=== PATIENT | male | born 1990 | race Caucasian/White ===

== ENCOUNTER 2018-04-25 23:49 | Emergency (ER) | payer OTHER ==
[2018-04-26] MEDS ORDERED: ACETAMINOPHEN 500 MG TAB PO ONE (00:35)
[2018-04-26] MEDS ORDERED: NS 1,000 ML IV ONE (00:43)
--- NOTE | 2018-04-26 00:52 | EDPHY ---
H & P Stated Complaint: RIGHT LEG CALF SWOLLEN, WORRIED ABOUT DVT Time Seen by Provider: 04/26/18 00:07 HPI/ROS: HPI The patient presents with atraumatic right calf swelling which began tonight at about 11:00 p.m.. His calf felt sore and then began to feel tight and swollen. He then had radiation of his symptoms toward his groin. He denies any injuries to the area, any recent workout, any fevers or chills. The leg does not feel warm. He took an airplane flight about 2 weeks ago that was 2 hr long. His sister and other family members have a history of DVT/PE. He has never had a DVT or PE. He denies any shortness of breath, palpitations, chest pain. REVIEW OF SYSTEMS 10 systems were reviewed and negative with the exception of the elements mentioned in the history of present illness. PMHx: Healthy, takes Adderall daily Soc Hx: Here with a friend, nonsmoker PHYSICAL General Appearance: Alert, no distress Eyes: Pupils equal and round no pallor or injection ENT, Mouth: Mucous membranes moist Respiratory: There are no retractions, lungs are clear to auscultation Cardiovascular: Tachycardic rate and regular rhythm Gastrointestinal: Abdomen is soft and non-tender, no masses, bowel sounds normal Neurological: A&O, moves all extremities Skin: Warm and dry, no rashes Musculoskeletal: Right calf is tensely edematous and tender, tenderness extends to the popliteal fossa, 2+ DP pulses, foot is warm, full range of motion of ankle Extremities: symmetrical, full range of motion Psychiatric: Patient is oriented X 3, there is no agitation Source: Patient Exam Limitations: No limitations - Personal History Current Tetanus/Diphtheria Vaccine: No Current Tetanus Diphtheria and Acellular Pertussis (TDAP): No - Medical/Surgical History Hx Asthma: No Hx Chronic Respiratory Disease: No Hx Diabetes: No Hx Cardiac Disease: No Hx Renal Disease: No Hx Cirrhosis: No Hx Alcoholism: No Hx HIV/AIDS: No Hx Splenectomy or Spleen Trauma: No Other PMH: denies - Social History Smoking Status: Never smoked Constitutional: Initial Vital Signs Temperature (C) 36.8 C 04/25/18 23:51 Heart Rate 138 H 04/25/18 23:51 Respiratory Rate 18 04/25/18 23:51 Blood Pressure 132/101 H 04/25/18 23:51 O2 Sat (%) 95 04/25/18 23:51 O2 Delivery Mode Room Air Allergies/Adverse Reactions: cefaclor [From Ceclor] Allergy (Verified 04/25/18 23:55) Home Medications: Medication Instructions Recorded Adderall 10 MG (RX) 08/07/15 Rivaroxaban [Xarelto] 1 each PO DAILY 30 Days tab.ds.pk 04/26/18 Medical Decision Making - Diagnostics Imaging Results: DVT study right lower extremity demonstrates right DVT extending from the proximal right femoral vein into the right popliteal vein, interpreted by direct Radiology. Imaging: I viewed and interpreted images myself Differential Diagnosis: 27-year-old man presents with several hours of atraumatic right calf edema and pain. Strong family history of DVT PE. Differential diagnosis includes DVT, myositis, ruptured Med[place] cyst. Plan for ultrasound, will give 1 L of IV fluid given his tachycardia. He does not have any symptoms of pulmonary embolism such as chest pain, shortness of breath, hypoxia. He is tachycardic, he does appear anxious and does take Adderall. Patient's heart rate improved from 138 to 110 with a L of fluid. He says he is feeling quite anxious as he usually does when in hospitals. He again denies any chest pain or shortness of breath. He had an ultrasound which does demonstrate a DVT. I will treat him with Lovenox as an outpatient as he is healthy without comorbidities and does not have extensive clot burden. Given his family history of similar, I suspect there may be some coagulopathy leading to a DVT. I have instructed him that he will need to find a primary care doctor to help him manage this and do any additional testing is needed.. - Data Points Medications Given: Discontinued Medications Acetaminophen (Tylenol) 1,000 mg PO EDNOW ONE Stop: 04/26/18 00:36 Last Admin: 04/26/18 00:42 Dose: 1,000 mg Sodium Chloride (Ns) 1,000 mls @ 0 mls/hr IV EDNOW ONE; Wide Open PRN Reason: Protocol Stop: 04/26/18 00:44 Last Admin: 04/26/18 00:43 Dose: 1,000 mls Departure - Departure Disposition: Home, Routine, Self-Care Clinical Impression: Dvt femoral (deep venous thrombosis) Qualifiers: Chronicity: acute Laterality: right Qualified Code(s): I82.411 - Acute embolism and thrombosis of right femoral vein Condition: Good Instructions: Deep Vein Thrombosis (ED) Additional Instructions: Please follow-up with the primary care doctor in the next few days. It is okay to take ibuprofen or Tylenol as needed for pain. Keep the leg elevated when you can. Referrals: Doris Lester MD [Primary Care Provider] - As per Instructions Angelita Alvarado MD [Medical Doctor] - As per Instructions Prescriptions: Rivaroxaban [Xarelto] 1 each PO DAILY 30 Days tab.[email or web address]
[2018-04-26] MEDS ORDERED: RIVAROXABAN 15 MG TAB PO ONE (01:59)
[2018-04-26 02:14] VITALS: BP 131/92
== END 2018-04-26 02:14 | disposition home or self-care (01) ==
DX: I82.411 Acute embolism and thrombosis of right femoral vein (principal); E86.9 Volume depletion, unspecified

== ENCOUNTER → 2018-07-01 | Outpatient (CLI) | payer OTHER | LOC: FIMAGING 16:13 | PROVIDERS: ATTEND Internal Medicine Hematology & Oncology | DX: I82.411 Acute embolism and thrombosis of right femoral vein (principal); I82.431 Acute embolism and thrombosis of right popliteal vein ==

== ENCOUNTER → 2018-07-24 | Outpatient (CLI) | payer OTHER | LOC: FIMAGING 16:04 ==

== ENCOUNTER → 2018-08-06 | Day surgery (SDC) | payer OTHER | LOC: FIMAGING 07:45 ==

== ENCOUNTER → 2018-08-21 | Outpatient (CLI) | payer OTHER | LOC: FIMAGING 14:25 ==